=== PATIENT | female | born 1960 | race Hispanic/Latino ===

== ENCOUNTER 2018-05-24 23:45 | Emergency (ER) | payer OTHER ==
[~2018-05-24] VITALS: Ht 160 cm; Wt 65.8 kg
[2018-05-25] MEDS ORDERED: ONDANSETRON HCL 4 MG ORAL DISINTEGRATING TAB SL ONE (00:45)
[2018-05-25] MEDS ORDERED: KETOROLAC TROMETHAMINE 60 MG/2 ML VIAL IM ONE (00:45)
--- NOTE | 2018-05-25 01:05 | Diagnostic Imaging Report ---
EXAM: CT ABDOMEN AND PELVIS without IV CONTRAST INDICATION: Right flank pain COMPARISON: None TECHNIQUE: The abdomen and pelvis were scanned using a multidetector helical scanner. Coronal and sagittal reformations were obtained. Dose modulation, iterative reconstruction, and/or weight based adjustment of the mA/kV was utilized to reduce the radiation dose to as low as reasonably achievable. Renal stone protocol performed. IV Contrast: None Oral Contrast: None CTDIvol has been reviewed. It is below the limits set by the Radiation Protocol Committee (RPC). FINDINGS: LOWER THORAX: No consolidations LIVER: Cysts measuring 3 cm and 1.6 cm in the liver. BILIARY: The gallbladder is normal. Mild dilation of the common bile duct to 9 mm. SPLEEN: Calcified granulomas. PANCREAS: No masses ADRENALS: No nodules RIGHT KIDNEY: There is a 6 mm stone at the right ureterovesicular junction resulting in severe right hydronephrosis. There are at least three 1 to 2 mm additional stones throughout the right kidney. LEFT KIDNEY: There are two punctate nonobstructing stones in the left kidney. GI TRACT: No wall thickening or obstruction. Colonic diverticulosis. Normal appendix. VESSELS: Mild atherosclerotic changes of the abdominal aorta without aneurysm. PERITONEUM/RETROPERITONEUM: No free air or fluid LYMPH NODES: No lymphadenopathy REPRODUCTIVE ORGANS: Normal BLADDER: Decompressed SOFT TISSUES: Normal BONES: No suspicious bone lesions. IMPRESSION: 1. There is a 6 mm stone at the right ureterovesicular junction resulting in severe right hydroureteronephrosis. 2. Nonacute findings include: * Bilateral nephrolithiasis * Mild dilation of the common bile duct to 9 mm with a normal-appearing gallbladder * Colonic diverticulosis * Simple liver cysts, no follow-up indicated Signed by: Dr. Laina Edwards M.D. on 05/25/2018 1:02 AM
[2018-05-25] MEDS ORDERED: ZOFRAN8 MG PO (01:43)
[2018-05-25] MEDS ORDERED: KETOROLAC TROME10 MG PO (01:43)
[2018-05-25] MEDS ORDERED: TYLENOL WITH C1 EACH PO (01:43)
[2018-05-25] MEDS ORDERED: FLOMAX0.4 MG PO (01:43)
[2018-05-25 02:47] VITALS: BP 130/68
== END 2018-05-25 02:00 | disposition home or self-care (01) ==
LOC: FSED 23:45
DX: R30.0 Dysuria (principal); M54.5 Low back pain; R11.2 Nausea with vomiting, unspecified; R10.9 Unspecified abdominal pain; N20.2 Calculus of kidney with calculus of ureter
CPT/HCPCS: 74176; 80053; 81003; 99283

== ENCOUNTER 2018-05-30 13:39 | Inpatient (IN) | payer SELFPAY ==
[~2018-05-30] VITALS: Ht 157.5 cm; Wt 76.2 kg
[~2018-05-30 13:39] MED LIST: FLOMAX0.4 MG PO; KETOROLAC TROME10 MG PO; TYLENOL WITH C1 EACH PO; ZOFRAN8 MG PO
--- OUTSIDE RECORDS SUMMARY | 2018-05-30 13:42 | XMS REPORT ---
Author [facility] Address Unknown Phone Unavailable Care Team Providers Care Quality Cloth Tester Name Role Phone Jocelynn CASTELLANOS Unavailable Unavailable Problems This patient has no known problems. Allergies, Adverse Reactions, Alerts This patient has no known allergies or adverse reactions. Medications This patient has no known medications. Results Test Description Test Time Test Comments Text Results Atomic Results Result Comments CT ABD/PEL WO CONTRAST-HOPD 2018-05-25 00:55:00 [place] [address] Patient Name: PAPO MARTÍNEZ MR #: [id number] : 1960 Age/Sex: 58/F Req #: [id number] Adm Physician: Ordered by: SESAR CASTELLANOS MD Report #: [id number] Location: [facility] Room/Bed: Procedure: [id number] HOPD/CT ABD/PEL WO CONTRAST-HOPD Exam Date: 05/25/18 Exam Time: 0030 REPORT STATUS: Signed EXAM: CT ABDOMEN AND PELVIS without IV CONTRAST INDICATION: Right flank pain COMPARISON: None TECHNIQUE: The abdomen and pelvis were scanned using a multidetector helical scanner. Coronal and sagittal reformations were obtained. Dose modulation, iterative reconstruction, and/or weight based adjustment of the mA/kV was utilized to reduce the radiation dose to as low as reasonably achievable. Renal stone protocol performed. IV Contrast: None Oral Contrast: None CTDIvol has been reviewed. It is below the limits set by the Radiation Protocol Committee (RPC). FINDINGS: LOWER THORAX: No consolidations LIVER: Cysts measuring 3 cm and 1.6 cm in the liver. BILIARY: The gallbladder is normal. Mild dilation of the common bile duct to 9 mm. SPLEEN: Calcified granulomas. PANCREAS: No masses ADRENALS: No nodules RIGHT KIDNEY: There is a 6 mm stone at the right ureterovesicular junction resulting in severe right hydronephrosis. There are at least three 1 to 2 mm additional stones throughout the right kidney. LEFT KIDNEY: There are two punctate nonobstructing stones in the left kidney. GI TRACT: No wall thickening or obstruction. Colonic diverticulosis. Normal appendix. VESSELS: Mild atherosclerotic changes of the abdominal aorta without aneurysm. PERITONEUM/RETROPERITONEUM: No free air or fluid LYMPH NODES: No lymphadenopathy REPRODUCTIVE ORGANS: Normal BLADDER: Decompressed SOFT TISSUES: Normal BONES: No suspicious bone lesions. IMPRESSION: 1. There is a 6 mm stone at the right ureterovesicular junction resulting in severe right hydroureteronephrosis. 2. Nonacute findings include: * Bilateral nephrolithiasis * Mild dilation of the common bile duct to 9 mm with a normal-appearing gallbladder * Colonic diverticulosis * Simple liver cysts, no follow-up indicated Signed by: Dr. Erne Pisano M.D. on 05/25/2018 1:02 AM Dictated By: EREN PISANO MD 1 Transcribed By: CARROLL on 05/25/18101 COPY TO: SESAR CASTELLANOS MD
--- OUTSIDE RECORDS SUMMARY | 2018-05-30 13:42 | XMS REPORT | Continuity of Care Document ---
Author Author [facility] Interface Address Unknown Phone Unavailable Problems Problem Status Onset Date Classification Date Reported Comments Source R92.8 Active 04/29/2018 [facility] ROUTINE MAMMO Active 04/23/2018 [facility] Medications Medication Details Route Status Patient Instructions Ordering Provider Order Date Source Allergies, Adverse Reactions, Alerts Substance Category Reaction Severity Reaction type Status Date Reported Comments Source Immunizations Immunization Date Given Site Status Last Updated Comments Source Results Order Name Results Value Reference Range Date Interpretation Comments Source Breast Complete Brian US Breast Complete Brian US COMPLETE ULTRASOUND OF BOTH BREASTS AND AXILLA: 05/08/2018 CLINICAL: /Abnormal Mammo. COMPARISON:Comparison is made to exams dated: 05/08/2018 mammogram and 04/25/2018 mammogram - [facility]. TECHNIQUE: Color flow and real-time ultrasound of both breasts four quadrants, retroareolar, and axilla regions were performed. Peterson scale images of the real- time examination were reviewed. FINDINGS: There are two small benign cysts right breast at 3 and 9 o'clock that correlate with mammography. No abnormalities were seen sonographically in the left breast or either axilla. IMPRESSION: BENIGN RECOMMENDATION:There is no suspicious sonographic abnormality seen in the left breast to correspond with the initial mammographic density which is consistent with normal fibroglandular tissue. There is no sonographic evidence of malignancy. Return to annual mammogram screening schedule is recommended.(04/25/2019) The results were reviewed with the patient. This exam was interpreted at [id number] for [facility] in [place]. Carson cross/gloria:05/08/2018 13:44:22 Facilities Manager(s): Mary Lou Mccord [facility] letter sent: BI-RADS 1/2 Ultrasound BI-RADS: 2 Benign 05/08/2018 - - Read by: Carson Khan MD Dictated Date/time: 05/08/18 13:44 Electronically Signed by: Carson Khan MD 05/08/18 13:44 FINAL REPORT [facility] Breast Mammo Diag UNI incl CAD [place] Breast Mammo Diag UNI incl CAD MA UNILATERAL RIGHT DIGITAL DIAGNOSTIC MAMMOGRAM WITH CAD: 05/08/2018 CLINICAL: Callback/Right Asymmetry. Current study was evaluated with a Computer Aided Detection (CAD) system. COMPARISON:Comparison is made to exam dated: 04/25/2018 mammogram - [facility]. TECHNIQUE: Mammographic views were obtained using digital acquisition. Cenovia Version 1.3 was utilized for computer aided detection. FINDINGS: The tissue of right breast is heterogeneously dense, which could obscure detection of small masses. Scattered densities are noted in both breasts on the screening exam. There are benign calcifications in the right breast. There is a cluster of focal asymmetries in the right breast at 3 o'clock middle depth. This is less prominent and correlates with the prior exam. No other significant masses or calcifications are seen in the breast. IMPRESSION: INCOMPLETE: NEEDS ADDITIONAL IMAGING EVALUATION RECOMMENDATION:Scattered densities are noted in both breasts on the screening exam. Further evaluation with bilateral ultrasound is recommended. The cluster of focal asymmetries in the right breast is indeterminate. An ultrasound is recommended. The results were reviewed with the patient. This exam was interpreted at [id number] for [facility] in [place]. SUMMARY: Ultrasound will be performed at this time; please see dedicated separate report. Carson cross/gloria:05/08/2018 13:43:19 Facilities Manager(s): Francia Hyman, [facility] Mammogram BI-RADS: 0 Indeterminate 05/08/2018 - - Read by: Carson Khan MD Dictated Date/time: 05/08/18 13:43 Electronically Signed by: Carson Khan MD 05/08/18 13:43 FINAL REPORT [facility] Breast Mammo Scrn BRIAN incl CAD [place] Breast Mammo Scrn BRIAN incl CAD MA BILATERAL DIGITAL SCREENING MAMMOGRAM WITH CAD: 04/25/2018 CLINICAL: /Routine. Current study was evaluated with a Computer Aided Detection (CAD) system. COMPARISON:Exam is read without the benefit of comparison films. Patient is unsure and/or cannot remember where and/or when her prior exam(s) was performed. TECHNIQUE: Mammographic views were obtained using digital acquisition. Cenovia Version 1.3 was utilized for computer aided detection. FINDINGS: The tissue of both breasts is heterogeneously dense, which could obscure detection of small masses. Scattered densities are noted in both breasts. There are benign calcifications in both breasts. There is a cluster of irregular focal asymmetries in the right breast at 4 o'clock middle depth. No other significant masses, calcifications, or other findings are seen in either breast. IMPRESSION: INCOMPLETE: NEEDS ADDITIONAL IMAGING EVALUATION Scattered densities are noted in both breasts. Further evaluation with bilateral ultrasound is recommended unless previous films are received and show no significant interval change. The cluster of irregular focal asymmetries in the right breast is indeterminate. Right diagnostic mammogram with possible ultrasound is recommended (spot compression and lateral views). SUMMARY: Prior mammograms would be of added benefit to document prison stability. This aids in establishing benignity. The patient should make additional efforts to locate her prior exams. An addendum will be made if additional films are provided. This exam was interpreted at [id number] for [facility]. Carson Khan M.D. jt/:04/28/2018 07:50:23 Facilities Manager(s): Sandra Orellana, [facility] letter sent: BI-RADS 0 Mammogram BI-RADS: 0 Indeterminate 04/25/2018 - - Read by: Carson Khan MD Dictated Date/time: 04/28/18 07:50 Electronically Signed by: Carson Khan MD 04/28/18 07:50 FINAL REPORT [facility] Vital Signs Vital Sign Value Date Comments Source Encounters Location Location Details Encounter Type Encounter Number Reason For Visit Attending Provider ADM Date DC Date Status Source Procedures Procedure Code Date Perfomer Comments Source
--- NOTE | 2018-05-30 15:03 | Diagnostic Imaging Report ---
EXAMINATION: PA and lateral views of the chest. COMPARISON: None CLINICAL HISTORY: Cough lethargic DISCUSSION: Lines/tubes: None. Lungs: Small focal opacity within the left lower lung adjacent to the left heart border. Otherwise the lungs are clear. Pleura: No pleural effusion or pneumothorax. Heart and mediastinum: The cardiomediastinal silhouette is normal. Bones and soft tissues: No acute bony abnormalities. IMPRESSION: Focal left lower lung opacity adjacent to the left heart border may reflect infection. Otherwise, lungs are clear. Signed by: Dr. Boby Limon M.D. on 05/30/2018 3:00 PM
[2018-05-30] MEDS: SODIUM CHLORIDE 0.9% 1000ML 1,000 ML IV SCH ×9 (15:15→23:15)
[2018-05-30] MEDS ORDERED: CEFTRIAXONE SOD 1 GRAM/0.9% SOD CHL 50ML BAG IV ONE (15:15)
[2018-05-30] MEDS ORDERED: AZITHROMYCIN 500MG/NS 250 ML 250 ML IV ONE (15:15)
[2018-05-30] MEDS ORDERED: AZITHROMYCIN 500MG/NS 250 ML 250 ML IV SCH (18:00)
[2018-05-30] MEDS ORDERED: CEFTRIAXONE SOD 1 GRAM/0.9% SOD CHL 50ML BAG IV SCH (18:30)
[2018-05-30] MEDS ORDERED: AZITHROMYCIN 500MG/SOD CHL 0.9% 250ML BAG IV SCH (18:30)
[2018-05-30] MEDS: CEFTRIAXONE SOD 1 GM/NS 50 ML 50 ML IV SCH (19:48)
[2018-05-30] MEDS: AZITHROMYCIN 500MG/NS 250 ML 250 ML IV SCH (19:48)
--- NOTE | 2018-05-30 21:22 | NUR ---
PT ARRIVING TO UNIT VIA STRETCHER WITH lasting floorworker, NO DISTRESS NOTED, DENIES NEEDS, PT IN RESTROOM FOR BM, BED LOCKED AND LOW, CALL LIGHT WITH IN REACH, INSTRUCTED TO CALL , TELEMETRY TO BE APPLIED
[2018-05-30 21:30] VITALS: BP 109/60
[2018-05-30] MEDS: D5.45%NS/KCL 20MEQ 1,000 ML IV SCH (22:06)
[2018-05-30] MEDS ORDERED: ZOLPIDEM TARTRATE 5 MG TAB PO PRN (22:45)
[2018-05-30 23:00] VITALS: BP 109/56
[2018-05-30] MEDS: HYDROMORPHONE 2MG/ML 2 MG/ML ML IV PRN (23:30)
[2018-05-31] MEDS: D5.45%NS/KCL 20MEQ 1,000 ML IV SCH ×4 (02:30→22:42)
[2018-05-31 05:00] VITALS: BP 126/61
[2018-05-31 05:11] LABS: BASOPHILS % 0.5 % (0.0-1.0); EOSINOPHILS # (AUTO) 0.1 (0.0-0.4); EOSINOPHILS % 1.6 % (0.0-6.0); HEMATOCRIT 33.5 % (34.2-44.1); HEMOGLOBIN 11.1 g/dL (12.0-16.0); LYMPHOCYTES # (AUTO) 1.3 (1.0-3.2); LYMPHOCYTES % 15.8 % (18.0-39.1); MEAN CORPUSCULAR HGB CONC 33.1 g/dL (31-35); MEAN CORPUSCULAR VOLUME 87.5 fL (81-99); MONOCYTES # (AUTO) 1.2 (0.2-0.8); MONOCYTES % 13.9 % (4.4-11.3); NEUTROPHILS # (AUTO) 5.6 (2.1-6.9); NEUTROPHILS % 67.5 % (38.7-80.0); PLATELET COUNT 131 x10e3/uL (140-360); RED BLOOD COUNT 3.83 x10e6/uL (3.6-5.1); RED CELL DISTRIBUTION WIDTH 13.5 % (11.7-14.4)
[2018-05-31 05:34] LABS: ALANINE AMINOTRANSFERASE 32 IU/L (0-55); ALBUMIN/GLOBULIN RATIO 0.5 (0.8-2.0); ALKALINE PHOSPHATASE 96 IU/L (40-150); ANION GAP 9.9 mmol/L (8-16); BLOOD UREA NITROGEN 15 mg/dL (7-26); BUN/CREATININE RATIO 23 (6-25); CALCIUM 10.2 mg/dL (8.4-10.2); CARBON DIOXIDE 26 mmol/L (22-29); CHLORIDE 103 mmol/L (98-107); CREATININE, SERUM 0.64 mg/dL (0.57-1.11); EST GLOMERULAR FILTRATION RATE > 60 ML/MIN (60-); GLUCOSE 127 mg/dL (74-118); POTASSIUM 3.9 mmol/L (3.5-5.1); SODIUM 135 mmol/L (136-145)
[2018-05-31 06:05] LABS: CREATINE KINASE MB 0.1 ng/mL (0-5.0)
--- NOTE | 2018-05-31 06:19 | NUR ---
PT AMBULATING FROM RESTROOM, NO DISTRESS NOTED, DENIES NEEDS, CALL LIGHT IN REACH, TELEMETRY IN PLACE, IV INFUSING PER ORDER, DAUGHER AT BEDSIDE, INSTRUCTED TO CALL WITH NEEDS
[2018-05-31 07:44] VITALS: BP 108/63
[2018-05-31] MEDS ORDERED: ALBUTEROL SULF 0.083% NEB SOLN 3 ML NEB NEB PRN (08:00)
--- NOTE | 2018-05-31 08:41 | Progress Note ---
DATE: SUBJECTIVE: Patient is here for kidney stones and also for questionable pneumonia. Patient is currently coughing, no congestion, positive for pain and coughing. PHYSICAL EXAMINATION VITAL SIGNS: Patient is running a fever of 99.5, pulse of 99, respirations of 18, blood pressure 108/63, and pulse oximetry 97% on room air. HEENT: Normocephalic and atraumatic. Pupils are reactive to light and accommodation. CVS: Normal. Regular rate and rhythm. LUNGS: Clear to auscultation bilaterally. ABDOMEN: Nontender and nondistended. EXTREMITIES: No clubbing. No cyanosis. No edema. LABORATORY: White count today is 8.25, hemoglobin 11.1, hematocrit was 33.5. Chemistry shows sodium is 135, potassium 3.9, glucose 127. ALT, AST, and alk phos has been normal. Troponin has been normal at 1. MICROBIOLOGY: Blood cultures are pending. ASSESSMENT AND PLAN 1. Ureterolithiasis. 2. Questionable pneumonia. We will repeat chest x-ray tomorrow. Patient is currently on hydromorphone pain control, azithromycin, Rocephin and is on continuous IV fluids. Further recommendation per clinical course. We will repeat a chest x-ray tomorrow. Possible discharge tomorrow depending on clinical course. Labs will be done tomorrow. Job#: [id number] ELSA
[2018-05-31 09:09] VITALS: BP 108/63
[2018-05-31 11:22] VITALS: BP 105/55
[2018-05-31] MEDS: HYDROMORPHONE 2MG/ML 2 MG/ML ML IV PRN ×2 (12:22→22:42)
--- NOTE | 2018-05-31 12:52 | NUR ---
Nutrition Screen Note RD Recommendation for Physician: Continue diet as ordered Plan of Care: RD following, monitoring for adequacy and tolerance Nutrition reason for involvement: Nutrition Risk Trigger - MST Primary Diagnose(s): kidney stone Ht:62 in Wt:141lbs BMI:25.8 kg/m2 IBW:110lbs RD Assessment:(05/31/2018) Initial encounter with patient. Pt denies having any nausea, vomiting or diarrhea. Pt denies any chewing or swallowing difficulty. Pt denies any wt changes. Current Diet: Cardiac Malnutrition Evaluation (05/31/2018) The patient does not meet criteria for a specified degree of malnutrition at this time. Will re-evaluate at follow-up as appropriate. Diet Education Needs Assessment: Diet education not indicated. Diet Adequacy: Meeting calorie needs, Meeting protein needs, Meeting fluid needs Tolerance: Tolerating PO Nutrition Care Level: saul Murcia RD, LD, CNSC
--- NOTE | 2018-05-31 13:23 | NUR ---
Rounds by urologist and orders for KUB and will monitor stone movement, no aggressive intervention at this time, pains well managed, will monitor.
[2018-05-31 14:02] LABS: EOSINOPHILS % (MANUAL) 1 % (0-7); LYMPHOCYTES % (MANUAL) 9 % (19-48); MONOCYTES % (MANUAL) 13 % (3.4-9.0); NEUTROPHILS % (MANUAL) 74 % (40-74); PLATELET ESTIMATE ADEQUATE; PLATELET MORPHOLOGY COMMENT NORMAL; RBC MORPHOLOGY COMMENT NORMAL
--- NOTE | 2018-05-31 14:20 | Diagnostic Imaging Report ---
Abdomen/KUB INDICATION: ^Ureterolithiasis ^[id number] ^1358 COMPARISON: CT abdomen/pelvis 05/25/2018. FINDINGS: Portable, supine image obtained at 1358 hours. The image is motion degraded. Medical Devices: Normal. Bowel: Unremarkable bowel gas pattern. No dilated bowel loops. No pneumatosis. Calcifications: None over the renal shadows or along the expected course of the ureters. A calcification in the right UVJ and punctate right intrarenal calculi identified on CT are not visualized by x-ray. Organomegaly: None Bones: Stable degenerative changes of the spine. No focal osseous lesions. IMPRESSION: No evidence of renal calculus by x-ray. Signed by: Dr. Latonya Khan MD on 05/31/2018 2:17 PM
[2018-05-31 14:38] LABS: CREATINE KINASE < 7 IU/L (29-168)
[2018-05-31 16:08] VITALS: BP 100/57
--- NOTE | 2018-05-31 18:55 | NUR ---
REPORT RECEIVED FROM OFF GOING NURSE, PT RESTING IN BED ALERT AND ORIENTED, NO DISTRESS NOTED, DENIES NEEDS, TELEMETRY IN PLACE, FAMILY AT BED SIDE, IV INFUSING PER ORDER, CALL LIGHT IN REACH, INSTRUCTED TO CALL WITH NEEDS
--- NOTE | 2018-05-31 19:28 | NUR ---
DR. HUTTON INFORMED OF PTs BLOOD CULTURE RESULTS ALONG WITH CURRENT ANTIBIOTICS NO ORDERS GIVEN, AWAITING RESPONSE
[2018-05-31 20:00] VITALS: BP 119/63
--- NOTE | 2018-05-31 20:00 | NUR ---
DR PATIÑO INFORMED OF PTs BLOOD CULTURE RESULTS AND REPLIED "OK" Addendum: 05/31/18 at 5535 by BRANDON COBOS RN CHRISTINA DANIEL/S GIVEN
[2018-06-01] VITALS (8 sets, daily range): BP systolic 104–119; BP diastolic 58–72
[2018-06-01] MEDS: SODIUM CHLORIDE 0.9% 1000ML 1,000 ML IV SCH ×2 (05:15→05:34)
--- NOTE | 2018-06-01 05:37 | NUR ---
PT RESTING IN BED WITH EYES CLOSED, NO DISTRESS NOTED, IV INFUSING PER ORDER, DAUGHTER AT BEDSIDE, CALL LIGHT IN REACH, INSTRUCTED TO CALL WITH NEEDS , TELEMETRY NOTED
--- NOTE | 2018-06-01 08:15 | NUR ---
Patient alert and responsive, rounds by attending and KUB was negative from yesterday and possible patient past stone but positive blood and sputum cultures, will monitor patient and infuse abx at this time
--- NOTE | 2018-06-01 08:47 | Progress Note ---
DATE: SUBJECTIVE: Patient is here for abdominal pain consistent with nephrolithiasis and also finding of pneumonia. Currently, the patient is still coughing, also complains of decreased hearing on both sides. Patient is on Atrovent and albuterol treatments, azithromycin and Rocephin. Patient's blood cultures grew some gram-negative rods yesterday. Patient is currently afebrile and except for the hearing loss doing well. PHYSICAL EXAMINATION VITAL SIGNS: Temperature is 98.5, pulse of 77, respirations of 18, blood pressure is 110/58, and pulse oximetry 96% on room air. HEENT: Normocephalic, atraumatic. Pupils are reactive to light and accommodation. CVS: S1, S2 normal. LUNGS : Right-sided rhonchi present. ABDOMEN: Nontender, nondistended. EXTREMITIES: No clubbing, no cyanosis and/or edema. LABORATORY VALUES: From yesterday, white count is 8.25, hemoglobin of 11.1, and hematocrit of 33.5. Chemistries today show sodium 135, potassium 3.9, BUN of 15, creatinine of 0.64. Troponins have been negative. IMAGING STUDIES: X-ray showed focal left lower lung opacity. ASSESSMENT AND PLAN 1. Pneumonia. Continue with azithromycin and Rocephin. 2. Questionable blood culture with gram-negative rods. We will continue to monitor the patient. Blood cultures will be followed. Sensitivities will be followed. 1. For hearing loss, possible consult with Dr. Paz will be done too and further recommendation per clinical course. We will continue to monitor the patient along with daily electrolytes and a chest x-ray in the morning. Job#: [id number] ELSA
--- NOTE | 2018-06-01 09:16 | NUR ---
Patient alert and responsive, returned from CXR and orders in place to consult Dr. Paz for hearing loss and being called at this time by community fundraiser.
--- NOTE | 2018-06-01 09:28 | Diagnostic Imaging Report ---
EXAMINATION: CHEST 2 VIEWS INDICATION: Cough for one week ^pneumonia ^[id number] ^0913 COMPARISON: Chest x-ray 05/30/2018 FINDINGS: PA and lateral views TUBES and LINES: None. LUNGS: Lungs are well inflated. Linear band of subsegmental atelectasis/scar in the left midlung field is stable. There is new subsegmental atelectasis in the lingula and new discoid atelectasis in the right lung base. PLEURA: No pleural effusion or pneumothorax. HEART AND MEDIASTINUM: The cardiomediastinal silhouette is unremarkable.. BONES AND SOFT TISSUES: No focal osseous lesions. The bones are diffusely demineralized. No focal osseous lesions. UPPER ABDOMEN: No free air under the diaphragm. IMPRESSION: Increasing subsegmental atelectasis in the lingula and right lung base. Signed by: Dr. Latonya Khan MD on 06/01/2018 9:25 AM
--- NOTE | 2018-06-01 09:50 | NUR ---
Spoke with Dr. Paz regarding consult and will be seeing patient later.
[2018-06-01] MEDS: D5.45%NS/KCL 20MEQ 1,000 ML IV SCH (13:06)
--- NOTE | 2018-06-01 14:12 | NUR ---
Patient encouraged to get OOB and ambulate and observed ambulating and provided with IS and observed using
--- NOTE | 2018-06-01 15:59 | NUR ---
Patient alert, OOB and ambulating hallway, IV fluids running, no c/o pains today, family with patient , will monitor
[2018-06-01] MEDS: CEFTRIAXONE SOD 1 GM/NS 50 ML 50 ML IV SCH (17:46)
[2018-06-01] MEDS: AZITHROMYCIN 500MG/NS 250 ML 250 ML IV SCH (18:32)
[2018-06-02] VITALS (8 sets, daily range): BP systolic 109–138; BP diastolic 65–72
[2018-06-02] MEDS: D5.45%NS/KCL 20MEQ 1,000 ML IV SCH ×4 (01:58→21:04)
[2018-06-02 05:53] LABS: BASOPHILS % 0.4 % (0.0-1.0); EOSINOPHILS # (AUTO) 0.1 (0.0-0.4); EOSINOPHILS % 1.9 % (0.0-6.0); HEMATOCRIT 31.6 % (34.2-44.1); HEMOGLOBIN 10.4 g/dL (12.0-16.0); LYMPHOCYTES % 26.9 % (18.0-39.1); MEAN CORPUSCULAR HEMOGLOBIN 29.1 pg (28-32); MEAN CORPUSCULAR HGB CONC 32.9 g/dL (31-35); MEAN CORPUSCULAR VOLUME 88.3 fL (81-99); MONOCYTES # (AUTO) 0.8 (0.2-0.8); MONOCYTES % 10.3 % (4.4-11.3); NEUTROPHILS # (AUTO) 4.4 (2.1-6.9); NEUTROPHILS % 59.8 % (38.7-80.0); PLATELET COUNT 323 x10e3/uL (140-360); RED BLOOD COUNT 3.58 x10e6/uL (3.6-5.1); RED CELL DISTRIBUTION WIDTH 13.3 % (11.7-14.4)
[2018-06-02 06:20] LABS: ANION GAP 10.3 mmol/L (8-16); BLOOD UREA NITROGEN 11 mg/dL (7-26); BUN/CREATININE RATIO 16 (6-25); CARBON DIOXIDE 25 mmol/L (22-29); CHLORIDE 105 mmol/L (98-107); CREATININE, SERUM 0.69 mg/dL (0.57-1.11); EST GLOMERULAR FILTRATION RATE > 60 ML/MIN (60-); GLUCOSE 120 mg/dL (74-118); POTASSIUM 4.3 mmol/L (3.5-5.1); SODIUM 136 mmol/L (136-145)
[2018-06-02 06:51] LABS: BAND NEUTROPHILS % (MANUAL) 4 %; EOSINOPHILS % (MANUAL) 2 % (0-7); LYMPHOCYTES % (MANUAL) 23 % (19-48); MONOCYTES % (MANUAL) 13 % (3.4-9.0); NEUTROPHILS % (MANUAL) 54 % (40-74); RBC MORPHOLOGY COMMENT NORMAL
[2018-06-02 06:52] LABS: PLATELET ESTIMATE ADEQUATE; PLATELET MORPHOLOGY COMMENT FEW LARGE
--- NOTE | 2018-06-02 07:05 | NUR ---
Received patient mid fowlers position, side rails upx2, call light within reach, family member at bedside. AAOx4 to time, person, place, situation. Respirations even and unlabored. Instructed to use call light for assistance. Will continue to monitor.
--- NOTE | 2018-06-02 07:05 | NUR ---
ELISEO Alvares PA aware of ESBL of blood. States " I am aware, will be seeing patient today"
--- NOTE | 2018-06-02 07:11 | Diagnostic Imaging Report ---
EXAMINATION: CHEST 2 VIEWS INDICATION: PNEUMONIA COMPARISON: 06/01/2018 FINDINGS: PA and lateral views TUBES and LINES: None. LUNGS: Lungs are well inflated. Increased left basilar atelectasis. There is no evidence of pneumonia or pulmonary edema. PLEURA: No pleural effusion or pneumothorax. HEART AND MEDIASTINUM: The cardiomediastinal silhouette is unremarkable. BONES AND SOFT TISSUES: No acute osseous lesion. Soft tissues are unremarkable. UPPER ABDOMEN: No free air under the diaphragm. IMPRESSION: Increasing atelectasis at the left lung base. Signed by: DR. Contreras Russell MD on 06/02/2018 7:08 AM
--- NOTE | 2018-06-02 07:19 | NUR ---
REPORT GIVEN TO ONCOMING NURSE,WALKING ROUNDS MADE.PT RESTING IN BED WITH NO S/S OF DISTRESS NOTED.
--- NOTE | 2018-06-02 07:20 | NUR ---
CALL PLACED TO DR ROSENBERG ANSWERING SERVICE,CONSULT TO DR ROSENBERG CALLED AT THIS TIME.
[2018-06-02] MEDS: ACETAMINOPHEN 325 MG TAB PO PRN (08:28)
[2018-06-02] MEDS: IPRATROPIUM BROMIDE 0.06% 42 MCG NASPR NS SCH ×3 (09:00→21:52)
[2018-06-02] MEDS: SALINE 0.65% NAS SOLN 1 SPRAY BTL SCH ×4 (10:00→21:04)
--- NOTE | 2018-06-02 10:47 | Consultation ---
DATE OF CONSULTATION: June 02, 2018 OTOLARYNGOLOGY CONSULTATION HISTORY OF PRESENT ILLNESS: I was kindly asked to see this 58-year-old woman for evaluation of hearing loss. Patient reports a greater than 1-year history of hearing loss and approximately 1 year ago was being evaluated for possible hearing aid placement. Since this admission she has noticed a marked decrease in her hearing bilaterally and complains of a bilateral "white noise" which is new in onset. She denies ear pain or pressure and has no vertiginous symptoms. She has a long history of nasal and sinus problems but reports that she has not been symptomatic with this episode. Her history of present illness, past medical history and past surgical history were reviewed in detail on the chart. PHYSICAL EXAMINATION: The tympanic membranes and external auditory canals were normal. There were minimal secretions in the nasal cavity and a moderate S-shaped nasal septal deviation. Oral cavity was unremarkable. She had a moderate postnasal drainage with lateral banding, worse on the left side. There was no palpable cervical adenopathy. ASSESSMENT 1. Sudden hearing loss. 2. Chronic rhinosinusitis. 3. Allergic rhinitis. 4. Nasal septal deviation. PLAN 1. [place]aff[place] Nasal [place], 2 puffs each side of nose q.4 h. while awake. 1. Atrovent 0.06%, 2 puffs each side of nose t.i.d. 2. Close followup with outpatient audiometric evaluation. Job#: [id number] EV
--- NOTE | 2018-06-02 13:49 | NUR ---
SOCIAL WORK INITIAL ASSESSMENT Ferryboat Captain to bedside to discuss plan of care with patient/family. CM/SW role and care transitions discussed. Anticipated discharge plan discussed along with duration of care. CM/SW discussed patients right to make decisions in care. CM/SW work hours given. Patient lives: IN APARTMENT WITH FAMILY DOWNSTAIRS Admit/Transfer: VIA HOME POA/Emergency contact: DAUGHTER ABRAHAM MARTÍNEZ [phone] Current/Previous Home Health: NONE PCP/Follow-up Care: [facility] Current/Previous DME: NONE Other Services: NONE Employment Status: INTERMEDIATE WORK Areas of Concerns: NONE Referral Needs: NONE Education Needs: NONE IMM/REYNOLDS given and signed (if applicable): NA Goal for discharge: RETURN HOME INDEPENDENTLY CM/SW left business card at the bedside with contact information. Name and number was also written on the patients whiteboard. Patient verbalized understanding of discussion. CM will follow-up with ongoing discharge and transition of care needs.
[2018-06-02] MEDS: MEROPENEM 1GM 100 ML IV SCH ×2 (15:53→21:04)
[2018-06-02 16:01] LABS: BILIRUBIN,URINE NEGATIVE (NEGATIVE); CLARITY,URINE CLEAR (CLEAR); COLOR,URINE YELLOW (YELLOW); KETONES,URINE NEGATIVE (NEGATIVE); LEUKOCYTE ESTERASE ,URINE TRACE (NEGATIVE); NITRITE,URINE NEGATIVE (NEGATIVE); PROTEIN,URINE DIPSTICK NEGATIVE (NEGATIVE); URINE UROBILINOGEN 0.2 mg/dL (0.2 - 1)
[2018-06-02 16:06] LABS: AMORPHOUS SEDIMENT,URINE FEW (FEW); BACTERIA,URINE MODERATE /HPF; EPITHELIAL CELLS,URINE MODERATE /LPF; RBC,URINE 0-5 /HPF (0-5); WBC,URINE (MAN) 0-5 /HPF (0-5)
--- NOTE | 2018-06-02 19:00 | NUR ---
Report given to oncoming nurse of patient's status. No s/s of acute distress noted.
[2018-06-02] MEDS: GUAIFENESIN/DEXTROMETHORPHAN LIQD 5 ML UDC NG PRN (20:15)
[2018-06-03] VITALS (8 sets, daily range): BP systolic 106–128; BP diastolic 60–78
[2018-06-03] MEDS: GUAIFENESIN/DEXTROMETHORPHAN LIQD 5 ML UDC NG PRN (00:23)
[2018-06-03] MEDS: SALINE 0.65% NAS SOLN 1 SPRAY BTL SCH ×5 (05:01→22:40)
[2018-06-03] MEDS: MEROPENEM 1GM 100 ML IV SCH ×3 (05:01→22:42)
--- NOTE | 2018-06-03 06:45 | Diagnostic Imaging Report ---
ABDOMEN-1VIEW (KUB) Clinical history: Kidney stone on the left Technique: AP view abdomen Comparison: CT 05/25/2018 Findings: Moderate overlying stool burden. Punctate bilateral renal stones better seen on CT. Previously identified right UVJ stone not clearly appreciated. Punctate calcifications over the central and left pelvis, which may correspond to degenerative fibroid and pelvic phlebolith. Impression: No radiographic evidence of stones. Signed by: Dr Mabel Jensen MD on 06/03/2018 6:41 AM
--- NOTE | 2018-06-03 08:21 | NUR ---
PT OFF UNIT AT THIS TIME TO CT
--- NOTE | 2018-06-03 09:10 | Diagnostic Imaging Report ---
EXAM: CT Abdomen and Pelvis WITHOUT contrast INDICATION: Left flank pain, left renal stone COMPARISON: CT Abdomen/Pelvis 05/25/2018. TECHNIQUE: Abdomen and pelvis were scanned utilizing a multidetector helical scanner from the lung base to the pubic symphysis without administration of IV contrast. Absence of intravenous contrast decreases sensitivity for detection of focal lesions and vascular pathology. Coronal and sagittal reformations were obtained. Renal stone protocol was performed. Dose modulation, iterative reconstruction, and/or weight based adjustment of the mA/kV was utilized to reduce the radiation dose to as low as reasonably achievable. RADIATION DOSE: Total DLP: 288.5 mGy*cm COMPLICATIONS: None FINDINGS: LINES and TUBES: None. LOWER THORAX: Patchy dependent atelectasis. Possible 3 mm solid pulmonary nodule in the right lower lobe. HEPATOBILIARY: Bilateral simple appearing hepatic cysts. Subcentimeter left hepatic lobe hypodensity is too small to characterize, but likely represents a cyst. No intrahepatic biliary ductal dilatation. Unchanged mild dilatation of the common bile duct to 9 mm. The gallbladder is unremarkable in appearance. Calcified hepatic granulomas. SPLEEN: No splenomegaly. Calcified splenic granulomas. PANCREAS: No focal masses or ductal dilatation. ADRENALS: No adrenal nodules KIDNEYS/URETERS: Interval resolution of 6 mm right UVJ stone. Previously noted right severe hydronephrosis has improved, and its now mild. No cystic or solid mass lesions. Punctate nonobstructing 1-2 mm bilateral lower pole renal stones. GI TRACT: No abnormal distention, wall thickening, or evidence of bowel obstruction. There is scattered colonic diverticulosis without CT evidence of diverticulitis. Appendix is normal. PELVIC ORGANS/BLADDER: Unremarkable. LYMPH NODES: No lymphadenopathy. VESSELS: There are scattered atherosclerotic calcifications in the aorta and branch vessels. PERITONEUM / RETROPERITONEUM: No free air or fluid. BONES/SOFT TISSUES: No acute osseous abnormality. No suspicious lytic or blastic lesions. Mild degenerative changes in the lower lumbar spine. IMPRESSION: Interval resolution of 6 mm right UVJ stone. Improvement of severe right hydronephrosis, now mild. Non-obstructing 1-2 mm bilateral lower pole renal stones. Colonic diverticulosis without CT evidence of diverticulitis. Unchanged mildly dilated CBD measuring 9 mm with unremarkable appearance of the gallbladder. Signed by: Dr. Gian Freeman MD on 06/03/2018 9:07 AM
--- NOTE | 2018-06-03 09:49 | NUR ---
holding am BP meds until decision on dialysis today made.
[2018-06-03] MEDS: HYDROMORPHONE 2MG/ML 2 MG/ML ML IV PRN (12:19)
[2018-06-03] MEDS: D5.45%NS/KCL 20MEQ 1,000 ML IV SCH ×3 (14:01→22:42)
[2018-06-03] MEDS: IPRATROPIUM BROMIDE 0.06% 42 MCG NASPR NS SCH ×2 (14:02→16:02)
[2018-06-03] MEDS: ACETAMINOPHEN 325 MG TAB PO PRN (19:31)
[2018-06-04] VITALS: BP 98/55
[2018-06-04 04:00] VITALS: BP 141/65
[2018-06-04] MEDS: MEROPENEM 1GM 100 ML IV SCH ×2 (06:26→13:42)
[2018-06-04] MEDS: SALINE 0.65% NAS SOLN 1 SPRAY BTL SCH (06:26)
--- NOTE | 2018-06-04 06:55 | NUR ---
rounded with business employment specialist nurse, patient aware of change. Patient in no distress, call chaves within reach.
[2018-06-04 07:43] VITALS: BP 119/59
[2018-06-04 07:50] VITALS: BP 128/97
[2018-06-04] MEDS: D5.45%NS/KCL 20MEQ 1,000 ML IV SCH (08:58)
[2018-06-04 11:52] VITALS: BP 128/97
[2018-06-04] MEDS ORDERED: CIPRO500 MG PO (16:05)
[2018-06-04 16:20] VITALS: BP 124/65
--- NOTE | 2018-06-04 16:21 | NUR ---
discharge instructions given to patient and daughter, both verbalized understanding. IV discontinued at this time, catheter in tact and small dressing applied. Patient to be wheeled from floor via wheelchair to personal auto for daughter to take home. Addendum: 06/04/18 at 1624 by Leann Bocanegra RN patient escorted out, patient insisted on walking. Patient in stable condition
--- NOTE | 2018-06-13 10:55 | Consultation ---
DATE OF CONSULTATION: INFECTIOUS DISEASE CONSULTATION REASON FOR CONSULTATION: Sepsis with ESBL. HISTORY OF PRESENT ILLNESS: This is a patient who is a 58-year-old female. The patient apparently was sick about a few days ago, went to an outpatient facility. She was told she had a UTI. She was given different antibiotic. She was having back pain mainly on the right flank. She was given antibiotic and 2 other medications, but 4 days later she was still having pain, not feeling any better. The patient came to an outside facility. She was told she had pneumonia. She was transferred here. She was on Rocephin, azithromycin. Her blood culture was showing gram-negative ESBL; so, I was asked to see her. The patient says she is feeling better but she is not hearing in her right ear, which is new, and some vague headache but overall she says she is feeling better. The patient had a CAT scan without IV contrast, which back on May 25 shows a cyst gallbladder, looked calcified granuloma in the spleen. There was a 6 mm stone in the right ureterovesical junction. Her laboratory data reviewed. REVIEW OF SYSTEMS: HEENT: Negative, besides the hearing. : Negative. GI: Negative. SKIN: There is no rash. She grew Proteus mirabilis which was ESBL, sensitive to Bactrim and Augmentin and levofloxacin and meropenem and Invanz. PHYSICAL EXAMINATION: GENERAL: She is currently alert, oriented, does not seem to be in acute distress. VITALS: Stable. Currently afebrile. HEENT: She does not appear icteric. NECK: Supple. CHEST: Clear. HEART: S1/S2. No S3, no S4, no murmur. ABDOMEN: Soft. Bowel sounds are present. No tenderness. EXTREMITIES: No edema. SKIN: No rash. IMPRESSION: Sepsis secondary to gram-negative and source probably pyelonephritis. There is no urine culture done. Will put the patient on meropenem 1 gram IV piggyback q.8 hours. Recheck CBC. Recheck chem panel. IV fluid. Will recheck urine and blood cultures in 48 hours. Further recommendations to follow. Job#: [id number]
== END 2018-06-04 16:25 | disposition home or self-care (01) | DRG 871 ==
LOC: FSED 13:39 → ERHOLD 18:26 → IMCU 21:22 → OBSVTOIN 06-01 11:28
PROVIDERS: ADMIT Internal Medicine; ATTEND Internal Medicine
DX: A41.59 Other Gram-negative sepsis (principal); J15.9 Unspecified bacterial pneumonia; N13.6 Pyonephrosis; N20.0 Calculus of kidney; Z82.49 Family history of ischemic heart disease and other diseases of the circulatory system; H91.93 Unspecified hearing loss, bilateral; J30.9 Allergic rhinitis, unspecified; J32.9 Chronic sinusitis, unspecified; J34.2 Deviated nasal septum; B96.4 Proteus (mirabilis) (morganii) as the cause of diseases classified elsewhere; Z16.12 Extended spectrum beta lactamase (ESBL) resistance; D64.9 Anemia, unspecified
CPT/HCPCS: 36415; 71046; 74018; 74176; 80048; 80053; 81001; 81003; 82550; 82553; 84484; 85025; 87040; 87070; 87071; 87186; 87205; 87400; 94640; 96361; 99284; G0378; J0456; J0696; J7030